=== PATIENT | female | born 1965 | race Caucasian/White ===

== ENCOUNTER → 2016-05-22 | Emergency (ER) | payer OTHER ==
--- NOTE | 2016-05-22 14:21 | ED ORDER SUMMARY ---
..... Patient: AUBREY MONTAGUE OrderSheet [facility] VisitID: [id number] [address] [place] [address] 50y, F Registration Date/Time: 05/22/2016 ORDER SHEET Weight: 136.0 kg (stated) Allergies: Penicillins GENERAL ORDERS: MEDICATION ORDERS: Decadron IM 8 mg (NOW) (14:18 05/22/2016 HBivens A.R.N.P.) (Ack 14:21 RMarsden R.N.) (14:38 RMarsden R.N.) Toradol IM 60 mg (NOW) (14:18 05/22/2016 HBivens A.R.N.P.) (Ack 14:21 RMarsden R.N.) (14:39 RMarsden R.N.) IV FLUIDS: ORDER SHEET NOTES: [Electronically signed by Maylin West R.N. (14:57 05/22/2016)] [Electronically signed by Susannah McdonaldR.N.P. (17:12 05/22/2016)] [Electronically locked/signed by Maylin West R.N. (14:57 05/22/2016)]
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
--- NOTE | 2016-05-22 14:21 | ED ORDER SUMMARY ---
..... Patient: AUBREY MONTAGUE OrderSheet [facility] VisitID: [id number] [address] [place] [address] 50y, F Registration Date/Time: 05/22/2016 ORDER SHEET Weight: 136.0 kg (stated) Allergies: Penicillins GENERAL ORDERS: MEDICATION ORDERS: Decadron IM 8 mg (NOW) (14:18 05/22/2016 HBivens A.R.N.P.) (Ack 14:21 RMarsden R.N.) (14:38 RMarsden R.N.) Toradol IM 60 mg (NOW) (14:18 05/22/2016 HBivens A.R.N.P.) (Ack 14:21 RMarsden R.N.) (14:39 RMarsden R.N.) IV FLUIDS: ORDER SHEET NOTES: [Electronically signed by Maylin West R.N. (14:57 05/22/2016)] [Electronically signed by Susannah McdonaldR.N.P. (17:12 05/22/2016)] [Electronically locked/signed by Maylin West R.N. (14:57 05/22/2016)]
--- NOTE | 2016-05-22 17:12 | ED MAR SUMMARY ---
..... Medication Administration Record [facility] [address] [place] [address] Patient: AUBREY MONTAGUE Visit ID: [id number] 50y, F Weight: 136.0 kg Height/Length: 62 in BMI: 54.9 ALLERGIES: Penicillins Given 14:37 05/22/2016 Maylin West, R.N. Medication Administered: DECADRON [IM] (DEXAMETHASONE SODIUM PHOSPHATE), Dose: 8 mg IM. Medication Ordered: Decadron IM 8 mg (NOW). Given 14:39 05/22/2016 Maylin West, R.N. Medication Administered: TORADOL [IM] (KETOROLAC TROMETHAMINE), Dose: 60 mg IM. Medication Ordered: Toradol IM 60 mg (NOW).
--- NOTE | 2016-05-22 17:12 | ED DISCHARGE INSTRUCTIONS ---
Patient: AUBREY MONTAGUE General Instructions [facility] VisitID: [id number] [address] [place] [address] 50y, F Registration Date/Time: 05/22/2016 Chronic nontraumatic lumbar back pain. Lumbar radiculopathy present. Sciatica present on the right. No neurological deficit. INSTRUCTIONS Warnings: GENERAL WARNINGS: Return or contact your physician immediately if your condition worsens or changes unexpectedly, if not improving as expected, or if other problems arise. SPECIFICALLY, return if you develop incontinence of feces (loss of bowel control) or urine (loss of bladder control). Prescription Medications: Naproxen 500 mg tablets: take 1 orally every 12 hours as needed for pain. Dispense twenty (20). No refills. Flexeril 10 mg: Take 1 orally every 8 hours as needed for muscle spasm. Dispense twenty (20). No refills. Substitution is permissible. Follow-up: Follow up with your doctor in about one week as needed. Call for an appointment. Summary of care provided to patient. Understanding of the discharge instructions verbalized by patient. ADDITIONAL INFORMATION Back Pain [Acute Or Chronic] Back pain is usually caused by an injury to the muscles or ligaments of the spine. Sometimes the disks that separate each bone in the spine may bulge and cause pain by pressing on a nearby nerve. Back pain may also appear after a sudden twisting/bending force (such as in a car accident), after a simple awkward movement, or lifting something heavy with poor body positioning. In either case, muscle spasm is often present and adds to the pain. Acute back pain usually gets better in one to two weeks. Back pain related to disk disease, arthritis in the spinal joints or spinal stenosis (narrowing of the spinal canal) can become chronic and last for months or years. Unless you had a physical injury (for example, a car accident or fall) X-rays are usually not ordered for the initial evaluation of back pain. If pain continues and does not respond to medical treatment, x-rays and other tests may be performed at a later time. Home Care: You may need to stay in bed the first few days. But, as soon as possible, begin sitting or walking to avoid problems with prolonged bed rest (muscle weakness, worsening back stiffness and pain, blood clots in the legs). When in bed, try to find a position of comfort. A firm mattress is best. Try lying flat on your back with pillows under your knees. You can also try lying on your side with your knees bent up towards your chest and a pillow between your knees. Avoid prolonged sitting. This puts more stress on the lower back than standing or walking. During the first two days after injury, apply an ICE PACK to the painful area for 20 minutes every 2-4 hours. This will reduce swelling and pain. HEAT (hot shower, hot bath or heating pad) works well for muscle spasm. You can start with ice, then switch to heat after two days. Some patients feel best alternating ice and heat treatments. Use the one method that feels the best to you. You may use acetaminophen (Tylenol) or ibuprofen (Motrin, Advil) to control pain, unless another pain medicine was prescribed. [NOTE: If you have chronic liver or kidney disease or ever had a stomach ulcer or GI bleeding, talk with your doctor before using these medicines.] Be aware of safe lifting methods and do not lift anything over 15 pounds until all the pain is gone. Follow Up with your doctor or this facility if your symptoms do not start to improve after one week. Physical therapy may be needed. [NOTE: If X-rays were taken, they will be reviewed by a radiologist. You will be notified of any new findings that may affect your care.] Get Prompt Medical Attention if any of the following occur: Pain becomes worse or spreads to your legs Weakness or numbness in one or both legs Loss of bowel or bladder control Numbness in the groin or genital area Sciatica Sciatica ("Lumbar Radiculopathy") causes a pain that spreads from the lower back down into the buttock, hip and leg. Sometimes leg pain can occur without any back pain. Sciatica is due to irritation or pressure on a spinal nerve as it comes out of the spinal canal. This is most often due to a bulge or rupture of a nearby spinal disk (the cartilage cushion between each spinal bone), which presses on a nearby nerve. Other causes include spinal stenosis (narrowing of the spinal canal) and spasm of the pyriform muscle (a muscle in the buttocks that the sciatic nerve passes through). Sciatica may begin after a sudden twisting/bending force (such as in a car accident), or sometimes after a simple awkward movement. In either case, muscle spasm is commonly present and contributes to the pain. The diagnosis of sciatica is made from the symptoms and physical exam. Unless you had a physical injury (such as a car accident or fall), X-rays are usually not ordered for the initial evaluation of sciatica because the nerves and disks cannot be seen on an x-ray. If signs of a compressed nerve are present (for example, loss of tendon reflex or strength in the leg), an MRI (magnetic resonance imaging) scan will need to be scheduled as an outpatient. Most sciatica (80-90%) gets better with medicine, exercise, physical therapy. If symptoms continue after at least three months of medical treatment, surgery may be considered. Home Care: You may need to stay in bed the first few days. But, as soon as possible, begin sitting or walking to avoid problems with prolonged bed rest. When in bed, try to find a position of comfort. A firm mattress is best. Try lying flat on your back with pillows under your knees. You can also try lying on your side with your knees bent up towards your chest and a pillow between your knees. Avoid prolonged sitting. This puts more stress on the lower back than standing or walking. Some persons find relief with heat (hot shower, hot bath or heating pad) and massage, while others prefer cold packs (crushed or cubed ice in a plastic bag, wrapped in a towel). Try both and use the method that feels best for 20 minutes several times a day. You may use acetaminophen (Tylenol) or ibuprofen (Motrin, Advil) to control pain, unless another pain medicine was prescribed. [ NOTE: If you have chronic liver or kidney disease or ever had a stomach ulcer or GI bleeding, talk with your doctor before using these medicines.] Be aware of safe lifting methods and do not lift anything over 15 pounds until all the pain is gone. Follow Up with your doctor or this facility if your symptoms do not start to improve after one week. Physical therapy or further testing may be needed. [NOTE: If X-rays were taken, they will be reviewed by a radiologist. You will be notified of any new findings that may affect your care.] Get Prompt Medical Attention if any of the following occur: Pain becomes worse, not controlled by the prescribed medicine Weakness or numbness in one or both legs Numbness in the groin, genital area Loss of bowel or bladder control Naproxen Sodium Oral tablet What is this medicine? NAPROXEN (na PROX en) is a non-steroidal anti-inflammatory drug (NSAID). It is used to reduce swelling and to treat pain. This medicine may be used for dental pain, headache, or painful monthly periods. It is also used for painful joint and muscular problems such as arthritis, tendinitis, bursitis, and gout. How should I use this medicine? Take this medicine by mouth with a glass of water. Follow the directions on the prescription label. Take it with food if your stomach gets upset. Try to not lie down for at least 10 minutes after you take it. Take your medicine at regular intervals. Do not take your medicine more often than directed. Long-term, continuous use may increase the risk of heart attack or stroke. A special MedGuide will be given to you by the pharmacist with each prescription and refill. Be sure to read this information carefully each time. Talk to your yarn weigher regarding the use of this medicine in children. Special care may be needed. What side effects may I notice from receiving this medicine? Side effects that you should report to your doctor or health critical care physician assistant as soon as possible: black or bloody stools, blood in the urine or vomit blurred vision chest pain difficulty breathing or wheezing nausea or vomiting severe stomach pain skin rash, skin redness, blistering or peeling skin, hives, or itching slurred speech or weakness on one side of the body swelling of eyelids, throat, lips unexplained weight gain or swelling unusually weak or tired yellowing of eyes or skin Side effects that usually do not require medical attention (report to your doctor or health critical care physician assistant if they continue or are bothersome): constipation headache heartburn What may interact with this medicine? alcohol aspirin cidofovir diuretics lithium methotrexate other drugs for inflammation like ketorolac or prednisone pemetrexed probenecid warfarin What if I miss a dose? If you miss a dose, take it as soon as you can. If it is almost time for your next dose, take only that dose. Do not take double or extra doses. Where should I keep my medicine? Keep out of the reach of children. Store at room temperature between 15 and 30 degrees C (59 and 86 degrees F). Keep container tightly closed. Throw away any unused medicine after the expiration date. What should I tell my health care provider before I take this medicine? They need to know if you have any of these conditions: asthma cigarette smoker drink more than 3 alcohol containing drinks a day heart disease or circulation problems such as heart failure or leg edema (fluid retention) high blood pressure kidney disease liver disease stomach bleeding or ulcers an unusual or allergic reaction to naproxen, aspirin, other NSAIDs, other medicines, foods, dyes, or preservatives or trying to get breast-feeding What should I watch for while using this medicine? Tell your doctor or health critical care physician assistant if your pain does not get better. Talk to your doctor before taking another medicine for pain. Do not treat yourself. This medicine does not prevent heart attack or stroke. In fact, this medicine may increase the chance of a heart attack or stroke. The chance may increase with longer use of this medicine and in people who have heart disease. If you take aspirin to prevent heart attack or stroke, talk with your doctor or health critical care physician assistant. Do not take other medicines that contain aspirin, ibuprofen, or naproxen with this medicine. Side effects such as stomach upset, nausea, or ulcers may be more likely to occur. Many medicines available without a prescription should not be taken with this medicine. This medicine can cause ulcers and bleeding in the stomach and intestines at any time during treatment. Do not smoke cigarettes or drink alcohol. These increase irritation to your stomach and can make it more susceptible to damage from this medicine. Ulcers and bleeding can happen without warning symptoms and can cause . You may get drowsy or dizzy. Do not drive, use machinery, or do anything that needs mental alertness until you know how this medicine affects you. Do not stand or sit up quickly, especially if you are an older patient. This reduces the risk of dizzy or fainting spells. This medicine can cause you to bleed more easily. Try to avoid damage to your teeth and gums when you brush or floss your teeth. Cyclobenzaprine Hydrochloride Oral tablet What is this medicine? CYCLOBENZAPRINE (sye gregorio vann) is a muscle relaxer. It is used to treat muscle pain, spasms, and stiffness. How should I use this medicine? Take this medicine by mouth with a glass of water. Follow the directions on the prescription label. If this medicine upsets your stomach, take it with food or milk. Take your medicine at regular intervals. Do not take it more often than directed. Talk to your yarn weigher regarding the use of this medicine in children. Special care may be needed. What side effects may I notice from receiving this medicine? Side effects that you should report to your doctor or health critical care physician assistant as soon as possible: allergic reactions like skin rash, itching or hives, swelling of the face, lips, or tongue chest pain fast heartbeat hallucinations seizures vomiting Side effects that usually do not require medical attention (report to your doctor or health critical care physician assistant if they continue or are bothersome): headache What may interact with this medicine? Do not take this medicine with any of the following medications: cisapride droperidol flecainide grepafloxacin halofantrine levomethadyl MAOIs like Carbex, Eldepryl, Marplan, Nardil, and Parnate nilotinib pimozide probucol sertindole This medicine may also interact with the following medications: abarelix alcohol contrast dyes dolasetron guanethidine medicines for cancer medicines for depression, anxiety, or psychotic disturbances medicines to treat an irregular heartbeat medicines used for sleep or numbness during surgery or procedure methadone octreotide ondansetron palonosetron phenothiazines like chlorpromazine, mesoridazine, prochlorperazine, thioridazine some medicines for infection like alfuzosin, chloroquine, clarithromycin, levofloxacin, mefloquine, pentamidine, troleandomycin tramadol vardenafil What if I miss a dose? If you miss a dose, take it as soon as you can. If it is almost time for your next dose, take only that dose. Do not take double or extra doses. Where should I keep my medicine? Keep out of the reach of children. Store at room temperature between 15 and 30 degrees C (59 and 86 degrees F). Keep container tightly closed. Throw away any unused medicine after the expiration date. What should I tell my health care provider before I take this medicine? They need to know if you have any of these conditions: heart disease, irregular heartbeat, or previous heart attack liver disease thyroid problem an unusual or allergic reaction to cyclobenzaprine, tricyclic antidepressants, lactose, other medicines, foods, dyes, or preservatives or trying to get breast-feeding What should I watch for while using this medicine? Check with your doctor or health critical care physician assistant if your condition does not improve within 1 to 3 weeks. You may get drowsy or dizzy when you first start taking the medicine or change doses. Do not drive, use machinery, or do anything that may be dangerous until you know how the medicine affects you. Stand or sit up slowly. Your mouth may get dry. Drinking water, chewing sugarless gum, or sucking on hard candy may help. You have been given the following additional information: Back Pain (Acute Or Chronic) Back Pain W/ Sciatica Naproxen Sodium Oral tablet Cyclobenzaprine Hydrochloride Oral tablet (Electronically signed by Susannah Mcdonald A.R.N.P. 05/22/2016 17:12)
--- NOTE | 2016-05-22 17:12 | ED MED RECONCILIATION SUMMARY ---
Patient: AUBREY MONTAGUE Medication Reconciliation Report [facility] VisitID: [id number] [address] [place] [address] 50y, F Registration Date/Time: 05/22/2016 Weight: 136.0 kg Height/Length: 62 in. BMI: 54.9 ALLERGIES: Penicillins The patient's Home Medications are listed below: THE FOLLOWING MEDICATIONS NEED TO BE RECONCILED: Aspirin EC Oral 81 mg, daily Atenolol Oral 100 mg, 2x a day BuPROPion HCl Oral DULoxetine HCl Oral 60, q day Fluvirin Intramuscular Gabapentin Oral 300 mg, daily HYDROmorphone HCl Oral 4 mg, 3x a day Levothyroxine Sodium Oral 50 mcg, daily Lidocaine-Prilocaine External, pain Lovastatin ER Oral 20 mg Omeprazole Oral 20 mg PARoxetine HCl Oral (40 mg) Polyethylene Glycol 3350 Oral Ranitidine HCl Oral 150 mg, at bedtime Topiramate Oral Tylenol Oral Ventolin HFA Inhalation 2 puffs, soa Vitamin D Oral Zofran ODT Oral (4 mg), nausea The source(s) of the original Home Medication information: Not obtained. The following Medications were given to the patient in the Emergency Department: Decadron [IM] IM 8 mg, administered: 05/22/2016 2:37:00 PM Toradol [IM] IM 60 mg, administered: 05/22/2016 2:39:00 PM The following Medications were prescribed to the patient: Naproxen 500 mg tablets: take 1 orally every 12 hours as needed for pain. Dispense twenty (20). No refills. -- Susannah Mcdonald A.R.NKalyanPKalyan Flexeril 10 mg: Take 1 orally every 8 hours as needed for muscle spasm. Dispense twenty (20). No refills. Substitution is permissible. -- Susannah Mcdonald A.R.NKalyanP.
--- NOTE | 2016-05-22 17:12 | ED MED RECONCILIATION SUMMARY ---
Patient: AUBREY MONTAGUE Medication Reconciliation Report [facility] VisitID: [id number] [address] [place] [address] 50y, F Registration Date/Time: 05/22/2016 Weight: 136.0 kg Height/Length: 62 in. BMI: 54.9 ALLERGIES: Penicillins The patient's Home Medications are listed below: THE FOLLOWING MEDICATIONS NEED TO BE RECONCILED: Aspirin EC Oral 81 mg, daily Atenolol Oral 100 mg, 2x a day BuPROPion HCl Oral DULoxetine HCl Oral 60, q day Fluvirin Intramuscular Gabapentin Oral 300 mg, daily HYDROmorphone HCl Oral 4 mg, 3x a day Levothyroxine Sodium Oral 50 mcg, daily Lidocaine-Prilocaine External, pain Lovastatin ER Oral 20 mg Omeprazole Oral 20 mg PARoxetine HCl Oral (40 mg) Polyethylene Glycol 3350 Oral Ranitidine HCl Oral 150 mg, at bedtime Topiramate Oral Tylenol Oral Ventolin HFA Inhalation 2 puffs, soa Vitamin D Oral Zofran ODT Oral (4 mg), nausea The source(s) of the original Home Medication information: Not obtained. The following Medications were given to the patient in the Emergency Department: Decadron [IM] IM 8 mg, administered: 05/22/2016 2:37:00 PM Toradol [IM] IM 60 mg, administered: 05/22/2016 2:39:00 PM The following Medications were prescribed to the patient: Naproxen 500 mg tablets: take 1 orally every 12 hours as needed for pain. Dispense twenty (20). No refills. -- Susannah Mcdonald A.R.NKalyanPKalyan Flexeril 10 mg: Take 1 orally every 8 hours as needed for muscle spasm. Dispense twenty (20). No refills. Substitution is permissible. -- Susannah Mcdonald A.R.NKalyanP.
--- NOTE | 2016-05-22 17:12 | ED MAR SUMMARY ---
..... Medication Administration Record [facility] [address] [place] [address] Patient: AUBREY MONTAGUE Visit ID: [id number] 50y, F Weight: 136.0 kg Height/Length: 62 in BMI: 54.9 ALLERGIES: Penicillins Given 14:37 05/22/2016 Maylin West, R.N. Medication Administered: DECADRON [IM] (DEXAMETHASONE SODIUM PHOSPHATE), Dose: 8 mg IM. Medication Ordered: Decadron IM 8 mg (NOW). Given 14:39 05/22/2016 Maylin West, R.N. Medication Administered: TORADOL [IM] (KETOROLAC TROMETHAMINE), Dose: 60 mg IM. Medication Ordered: Toradol IM 60 mg (NOW).
== END ==
LOC: ED SRH 13:42
DX: M54.41 Lumbago with sciatica, right side (principal); M54.16 Radiculopathy, lumbar region; I10 Essential (primary) hypertension; E07.9 Disorder of thyroid, unspecified; J98.4 Other disorders of lung; Z79.82 Long term (current) use of aspirin; Z79.899 Other long term (current) drug therapy; Z88.0 Allergy status to penicillin

== ENCOUNTER 2016-07-12 18:29 | Emergency (ER) | payer OTHER ==
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
--- NOTE | 2016-07-12 21:34 | ED MAR SUMMARY ---
..... Medication Administration Record [facility] [address], [place] [id number] Patient: AUBREY MONTAGUE Visit ID: [id number] 51y, F Weight: 136.0 kg Height/Length: 62 in BMI: 54.9 ALLERGIES: Penicillins
--- NOTE | 2016-07-12 21:34 | ED MAR SUMMARY ---
..... Medication Administration Record [facility] [address] [place], [place] [id number] Patient: AUBREY MONTAGUE Visit ID: [id number] 51y, F Weight: 136.0 kg Height/Length: 62 in BMI: 54.9 ALLERGIES: Penicillins
--- NOTE | 2016-07-12 21:34 | ED DISCHARGE INSTRUCTIONS ---
Patient: AUBREY MONTAGUE General Instructions [facility] VisitID: [id number] [place] [address] 51y, F Registration Date/Time: 07/12/2016 Upper respiratory infection (exposure to Pertussis). INSTRUCTIONS Drink plenty of fluids. Prescription Medications: Erythromycin 500 mg: take 1 orally every 6 hours for 10 days. No refill. Follow-up: Follow up with your doctor Friday as needed. Understanding of the discharge instructions verbalized by patient. ADDITIONAL INFORMATION Erythromycin Stearate Oral tablet What is this medicine? ERYTHROMYCIN (er ith blayne DAKOTAE sin) is a macrolide antibiotic. It is used to treat certain kinds of bacterial infections. It will not work for colds, flu, or other viral infections. How should I use this medicine? Take this medicine by mouth with glass of water. Follow the directions on the prescription label. Take this medicine on an empty stomach, at least 30 minutes before or 2 hours after food. If this medicine upsets your stomach, take with food or milk. Take your medicine at regular intervals. Do not take your medicine more often than directed. Do not skip doses or stop your medicine early even if you feel better. Do not stop taking except on your doctor's advice. Talk to your wood floor layer regarding the use of this medicine in children. Special care may be needed. What side effects may I notice from receiving this medicine? Side effects that you should report to your doctor or health care team coordinator scheduler as soon as possible: allergic reactions like skin rash, itching or hives, swelling of the face, lips, or tongue dark urine difficulty breathing hearing loss irregular heartbeat or chest pain redness, blistering, peeling or loosening of the skin, including inside the mouth severe or watery diarrhea unusually weak or tired yellowing of eyes or skin Side effects that usually do not require medical attention (report to your doctor or health care team coordinator scheduler if they continue or are bothersome): diarrhea loss of appetite nausea, vomiting stomach pain What may interact with this medicine? Do not take this medicine with any of the following medications: chloroquine cisapride droperidol eplerenone ergotamine and dihydroergotamine methadone other antibiotics, like grepafloxacin or sparfloxacin sirolimus some medicines for cholesterol like atorvastatin, cerivastatin, lovastatin, and simvastatin some medicines for heart rhythm problems some medicines for psychotic disturbances vinblastine red yeast rice This medicine may also interact with the following medications: alfentanil bromocriptine carbamazepine cyclosporine digoxin some medicines for anxiety or difficulty sleeping phenytoin terfenadine theophylline valproate warfarin What if I miss a dose? If you miss a dose, take it as soon as you can. If it is almost time for your next dose, take only that dose. Do not take double or extra doses. Where should I keep my medicine? Keep out of the reach of children. Store at room temperature between 15 and 30 degrees C (59 and 86 degrees F). Keep container tightly closed. Throw away any unused medicine after the expiration date. What should I tell my health care provider before I take this medicine? They need to know if you have any of these conditions: liver disease myasthenia gravis an unusual or allergic reaction to erythromycin, other medicines, foods, dyes, or preservatives or trying to get breast-feeding What should I watch for while using this medicine? Tell your doctor or health care team coordinator scheduler if your symptoms do not improve or if they get worse. Do not treat diarrhea with over the counter products. Contact your doctor if you have diarrhea that lasts more than 2 days or if it is severe and watery. You have been given the following additional information: Erythromycin Stearate Oral tablet (Electronically signed by Coty Cisneros P.A.-C 07/12/2016 18:58)
--- NOTE | 2016-07-12 21:34 | ED MED RECONCILIATION SUMMARY ---
Patient: AUBREY MONTAGUE Medication Reconciliation Report [facility] VisitID: [id number] [address] [place] [address] 51y, F Registration Date/Time: 07/12/2016 Weight: 136.0 kg Height/Length: 62 in. BMI: 54.9 ALLERGIES: Penicillins The patient's Home Medications are listed below: THE FOLLOWING MEDICATIONS NEED TO BE RECONCILED: Aspirin EC Oral 81 mg, daily Atenolol Oral 100 mg, 2x a day BuPROPion HCl Oral DULoxetine HCl Oral 60, q day Fluvirin Intramuscular Gabapentin Oral 300 mg, daily HYDROmorphone HCl Oral 4 mg, 3x a day Levothyroxine Sodium Oral 50 mcg, daily Lovastatin ER Oral 20 mg Omeprazole Oral 20 mg PARoxetine HCl Oral (40 mg) Polyethylene Glycol 3350 Oral Ranitidine HCl Oral 150 mg, at bedtime Topiramate Oral Tylenol Oral Ventolin HFA Inhalation 2 puffs, soa Vitamin D Oral Zofran ODT Oral (4 mg), nausea The source(s) of the original Home Medication information: patient The following Medications were given to the patient in the Emergency Department: None. The following Medications were prescribed to the patient: Erythromycin 500 mg: take 1 orally every 6 hours for 10 days. No refill. -- Coty Cisneros P.A.-C
--- NOTE | 2016-07-12 21:34 | ED DISCHARGE INSTRUCTIONS ---
Patient: AUBREY MONTAGUE General Instructions [facility] VisitID: [id number] [place] [address] 51y, F Registration Date/Time: 07/12/2016 Upper respiratory infection (exposure to Pertussis). INSTRUCTIONS Drink plenty of fluids. Prescription Medications: Erythromycin 500 mg: take 1 orally every 6 hours for 10 days. No refill. Follow-up: Follow up with your doctor Friday as needed. Understanding of the discharge instructions verbalized by patient. ADDITIONAL INFORMATION Erythromycin Stearate Oral tablet What is this medicine? ERYTHROMYCIN (er ith blayne DAKOTAE sin) is a macrolide antibiotic. It is used to treat certain kinds of bacterial infections. It will not work for colds, flu, or other viral infections. How should I use this medicine? Take this medicine by mouth with glass of water. Follow the directions on the prescription label. Take this medicine on an empty stomach, at least 30 minutes before or 2 hours after food. If this medicine upsets your stomach, take with food or milk. Take your medicine at regular intervals. Do not take your medicine more often than directed. Do not skip doses or stop your medicine early even if you feel better. Do not stop taking except on your doctor's advice. Talk to your building tech regarding the use of this medicine in children. Special care may be needed. What side effects may I notice from receiving this medicine? Side effects that you should report to your doctor or health home care coordinator as soon as possible: allergic reactions like skin rash, itching or hives, swelling of the face, lips, or tongue dark urine difficulty breathing hearing loss irregular heartbeat or chest pain redness, blistering, peeling or loosening of the skin, including inside the mouth severe or watery diarrhea unusually weak or tired yellowing of eyes or skin Side effects that usually do not require medical attention (report to your doctor or health home care coordinator if they continue or are bothersome): diarrhea loss of appetite nausea, vomiting stomach pain What may interact with this medicine? Do not take this medicine with any of the following medications: chloroquine cisapride droperidol eplerenone ergotamine and dihydroergotamine methadone other antibiotics, like grepafloxacin or sparfloxacin sirolimus some medicines for cholesterol like atorvastatin, cerivastatin, lovastatin, and simvastatin some medicines for heart rhythm problems some medicines for psychotic disturbances vinblastine red yeast rice This medicine may also interact with the following medications: alfentanil bromocriptine carbamazepine cyclosporine digoxin some medicines for anxiety or difficulty sleeping phenytoin terfenadine theophylline valproate warfarin What if I miss a dose? If you miss a dose, take it as soon as you can. If it is almost time for your next dose, take only that dose. Do not take double or extra doses. Where should I keep my medicine? Keep out of the reach of children. Store at room temperature between 15 and 30 degrees C (59 and 86 degrees F). Keep container tightly closed. Throw away any unused medicine after the expiration date. What should I tell my health care provider before I take this medicine? They need to know if you have any of these conditions: liver disease myasthenia gravis an unusual or allergic reaction to erythromycin, other medicines, foods, dyes, or preservatives or trying to get breast-feeding What should I watch for while using this medicine? Tell your doctor or health home care coordinator if your symptoms do not improve or if they get worse. Do not treat diarrhea with over the counter products. Contact your doctor if you have diarrhea that lasts more than 2 days or if it is severe and watery. You have been given the following additional information: Erythromycin Stearate Oral tablet (Electronically signed by Coty Cisneros P.A.-C 07/12/2016 18:58)
--- NOTE | 2016-07-12 21:34 | ED MED RECONCILIATION SUMMARY ---
Patient: AUBREY MONTAGUE Medication Reconciliation Report [facility] VisitID: [id number] [address] [place] [address] 51y, F Registration Date/Time: 07/12/2016 Weight: 136.0 kg Height/Length: 62 in. BMI: 54.9 ALLERGIES: Penicillins The patient's Home Medications are listed below: THE FOLLOWING MEDICATIONS NEED TO BE RECONCILED: Aspirin EC Oral 81 mg, daily Atenolol Oral 100 mg, 2x a day BuPROPion HCl Oral DULoxetine HCl Oral 60, q day Fluvirin Intramuscular Gabapentin Oral 300 mg, daily HYDROmorphone HCl Oral 4 mg, 3x a day Levothyroxine Sodium Oral 50 mcg, daily Lovastatin ER Oral 20 mg Omeprazole Oral 20 mg PARoxetine HCl Oral (40 mg) Polyethylene Glycol 3350 Oral Ranitidine HCl Oral 150 mg, at bedtime Topiramate Oral Tylenol Oral Ventolin HFA Inhalation 2 puffs, soa Vitamin D Oral Zofran ODT Oral (4 mg), nausea The source(s) of the original Home Medication information: patient The following Medications were given to the patient in the Emergency Department: None. The following Medications were prescribed to the patient: Erythromycin 500 mg: take 1 orally every 6 hours for 10 days. No refill. -- Coty Cisneros P.A.-C
== END 2016-07-12 18:55 | disposition home or self-care (01) ==
LOC: ED SRH 18:29
DX: J06.9 Acute upper respiratory infection, unspecified (principal); Z20.818 Contact with and (suspected) exposure to other bacterial communicable diseases; I10 Essential (primary) hypertension; E07.9 Disorder of thyroid, unspecified; Z79.82 Long term (current) use of aspirin; Z79.899 Other long term (current) drug therapy; Z79.891 Long term (current) use of opiate analgesic; Z79.1 Long term (current) use of non-steroidal anti-inflammatories (NSAID); Z88.0 Allergy status to penicillin

== ENCOUNTER 2016-09-21 23:16 | Emergency (ER) | payer OTHER ==
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
--- NOTE | 2016-09-22 04:41 | ED CLINICAL REPORT ---
Clinical Report - Physicians/Mid Levels [facility] [address] [place] [address] 09/21/2016 23:17 Patient: AUBREY MONTAGUE Time Seen: 23:36. Arrived- By private vehicle. Historian- patient. HISTORY OF PRESENT ILLNESS Chief Complaint: DYSPNEA and Back and abdominal pain. This started about 3 days ago and is still present. The dyspnea is described as mild (pain is moderate). (patient states it hurts to take a deep breath; nothing else makes the dyspnea better or worse). No cough, sputum production, fever, sweating episodes or wheezing. No chills, dyspnea on exertion, chest pain or discomfort or calf pain. No foot swelling, orthopnea, anxiety, dizziness or tingling. No numbness or palpitations. (Patient states that food makes her abdominal pain, on the back pain is just there no matter what. She states the back pain becomes worse with certain movements. Patient does have a history of GERD and gastritis, but has not had an endoscopy in a couple of years she states). Similar symptoms previously: Recent medical care: Not recently seen/assessed. REVIEW OF SYSTEMS The patient has had abdominal pain but not had weight loss. No muscle aches, eye irritation, sore throat, nasal discharge or sinus drainage. No nausea, vomiting, diarrhea, black stools or bloody stools. No headache, fainting episodes, blurred vision, difficulty with urination or skin rash. No enlarged lymph nodes or joint pain. All systems otherwise negative, except as recorded above. PAST HISTORY Problems: Sciatica. Tetanus Status. Gastroesophageal Reflux. Tension-Type Headache. Immunizations. LNMP - Last Normal Menstrual Period. Morbid obesity. Bulging disc L4-5. Fibromyalgia. Strong's esophagus. Sleep Apnea. Thyroid Disease. Anxiety Reaction. Atypical Chest Pain. Hypertension. Additional Surgeries: Cholecystectomy. . Hysterectomy. Laparoscopy. Oophorectomy. Salpingectomy. Sinus Surgery. Medications: PARoxetine HCl Oral (Tablet 40 mg). Polyethylene Glycol 3350 Oral. Ranitidine HCl Oral 150 mg, at bedtime. Topiramate Oral. Tylenol Oral. Ventolin HFA Inhalation 2 puffs, as needed (soa). Vitamin D Oral. Zofran ODT Oral (Tablet Dispersible 4 mg), as needed (nausea). Aspirin EC Oral 81 mg, daily. Atenolol Oral 100 mg, 2x a day. BuPROPion HCl Oral. DULoxetine HCl Oral 60, q day. Fluvirin Intramuscular. Gabapentin Oral 300 mg, daily. HYDROmorphone HCl Oral 4 mg, 3x a day. Levothyroxine Sodium Oral 50 mcg, daily. Lovastatin ER Oral 20 mg. Omeprazole Oral 20 mg, as needed. Allergies: Penicillins. SOCIAL HISTORY Never smoker. No alcohol use or drug use. ADDITIONAL NOTES The nursing notes have been reviewed. PHYSICAL EXAM Vital Signs: 09/21/2016 23:20 BP: 161/76. HR: 70. RR: 20. O2 saturation: 99%. Temp: 98.2 F. Pain level now: 10/10. Have been reviewed. Appearance: Alert. No acute distress. Eyes: Pupils equal, round and reactive to light. Eyes normal inspection. ENT: Nose normal. Neck: Normal inspection. CVS: Normal heart rate and rhythm. Heart sounds normal. Pulses normal. Respiratory: No respiratory distress. Breath sounds normal. Abdomen: Soft. Mild tenderness in the left upper quadrant. No guarding or rebound tenderness. Back: (Patient has mild tenderness over her left back.). Skin: Skin warm and dry. Normal skin color. No rash. Normal skin turgor. Extremities: Extremities exhibit normal ROM. No lower extremity edema. Neuro: Oriented X 3. No motor deficit. No sensory deficit. LABS, X-RAYS, AND EKG EKG: EKG time: (2779). No acute process. No acute ischemia. Normal sinus rhythm. Rate: 70. Normal P waves. First-degree atrioventricular block. Normal QRS complex. Normal axis. Normal ST and T waves, QT and QTc. Prior EKG unavailable. The study has been interpreted contemporaneously by me. The study has been independently viewed by me. The EKG appears to be a good tracing. I agree with and confirm the computer reading of the EKG. Rhythm Strip #1: Time: (1175). Rate= 72. Normal sinus rhythm. Regular rhythm. Narrow QRS complexes. No ectopy. Conduction normal. Normal ST segments and T waves. The study was interpreted by me. Chest X-ray: No acute disease. Normal lung markings present. Normal heart size. Mediastinum normal. Great vessels normal. Soft tissues normal. No infiltrate. No fracture. No bony lesion present. Views: AP (portable). Technique: good. The X-rays were independently viewed by me, interpreted by the radiologist and contemporaneously by me and discussed with the radiologist. Prior films were not available for comparison. Abdominal CT: Normal aorta. Fatty liver present. Pancreas abnormal. Normal spleen, adrenals and kidneys. No mass. No free fluid. No bony lesion. No diverticulitis. GB surgically absent. Thickening of bladder wall with mild stranding. Study type: abdomen and pelvis. Abdominal CT performed with IV contrast. The study was independently viewed by me, interpreted by the radiologist and contemporaneously by me and discussed with the radiologist. Prior studies were not available for comparison. Laboratory Tests: UA-Culture if indicated: (WHIT: 09/21/2016 23:40) ( [facility] 09/21/2016 23:59) Final results Test Result Flag Units (Reference) URINE COLOR YELLOW URINE APPEARANCE CLEAR URINE GLUCOSE NEGATIVE (NEGATIVE) URINE BILIRUBIN NEGATIVE (NEGATIVE) URINE KETONE NEGATIVE (NEGATIVE) URINE SPECIFIC GRAVITY 1.015 (1.010-1.030) URINE PH 7.0 (5.0-8.0) URINE PROTEIN NEGATIVE (NEGATIVE) URINE UROBILINOGEN 0.2 EU/dL (0.2-1.0) URINE NITRITE NEGATIVE (NEGATIVE) URINE BLOOD NEGATIVE (NEGATIVE) URINE LEUK ESTERASE NEGATIVE (NEGATIVE) URINE RBC RARE rbc/hpf (0-1) URINE WBC RARE wbc/hpf (0-1) URINE EPITHELIAL CELLS NONE SEEN EPI/hpf (0-5) URINE BACTERIA NONE SEEN (NONE SEEN) URINE COMMENT CULT NOT INDICATED URINE CULTURES ARE SET-UP BASED ON THE FOLLOWING CRITERIA:POSITIVE NITRITEPOSITIVE LEUKOCYTE ESTERASEGREATER THAN 10 WHITE BLOOD CELLSMODERATE (2+) OR GREATER BACTERIA CBC w Diff: (WHIT: 09/21/2016 23:40) ( [facility] 09/21/2016 23:53) Final results Test Result Flag Units (Reference) WHITE BLOOD COUNT 8.5 K/uL (4.5-11.5) RED BLOOD COUNT 3.86 L M/uL (4.00-5.20) HEMOGLOBIN 12.2 gm/dL (12.0-16.0) HEMATOCRIT 35.6 L % (36.0-46.0) MEAN CELL VOLUME 92 fL (80-100) MEAN CORPUSCULAR HGB 32 pg (26-34) MEAN CORPUSCULAR HGB CONC 34 g/dL (31-37) RED CELL DISTRIBUTION WIDTH 13.1 % (11.6-14.8) PLATELET COUNT 255 K/uL (150-400) NEUTROPHIL % 51.1 % (50-75) LYMPH % 41.1 H % (25-40) MONO % 6.1 % (3-14) EOSINOPHIL % 1.2 % (0-4) BASOPHIL % 0.5 % (0-2) Lipase: (WHIT: 09/21/2016 23:40) ( [facility] 09/22/2016 00:00) Final results Test Result Flag Units (Reference) LIPASE 85 U/L (73-393) AMYLASE 43 U/L (25-115) CHEM 13 PANEL: (WHIT: 09/21/2016 23:40) ( [facility] 09/22/2016 00:23) Final results Test Result Flag Units (Reference) GLUCOSE 165 H mg/dL (70-110) BUN 13 mg/dL (7-18) CREATININE 0.9 mg/dL (0.6-1.3) Estimated GFR >60 mL/min Estimated GFR- >60 mL/min Note: Persistent reduction over 3 months in eGFR<60 mL/min/1.73 m2 defines CKD. Patients with eGFR values>=60 mL/min/1.73 m2 may also have CKD if evidence ofpersistent proteinuria. Additional information may be foundat www.kidney.org. SODIUM 139 mmol/L (136-145) POTASSIUM 3.3 L mmol/L (3.5-5.1) CHLORIDE 107 mmol/L (98-107) CARBON DIOXIDE 25 mmol/L (21-32) CALCIUM 9.1 mg/dL (8.5-10.1) TOTAL PROTEIN 7.5 g/dL (6.4-8.2) ALBUMIN 3.5 g/dL (3.3-5.0) BILIRUBIN, TOTAL 0.3 mg/dL (0.0-1.0) ALKALINE PHOSPHATASE 157 H U/L (46-116) AST (SGOT) 22 U/L (15-37) ALT (SGPT) 64 U/L (12-78) MAGNESIUM 2.1 mg/dL (1.8-2.4) CPK 291 H U/L (24-260) CK-MB 3.0 ng/mL (0.5-3.2) %CKMB 1.0 % (0.0-4.0) TROPONIN I <0.05 L ng/mL (0.00-1.5) TROPONIN REFERENCE RANGE:<0.1 NEGATIVE0.1-1.5 INDETERMINANT>1.5 POSITIVE . Pulse Oximetry: 09/21/2016 23:20 O2 saturation: 99%. (FIO2 - room air). Interpretation: normal. PROGRESS AND PROCEDURES Course of Care: patient was worked up for her back and abdominal pain, as well as her dyspnea,with labs, UA, EKG chest x-ray, and CT scan of the abdomen and pelvis. Workup was unremarkable. Patient was treated symptomatically with Dilaudid, with improvement in sx. I discussed with her that it is likely time for her to contact her primary care physician about scheduling another endoscopy. I believe her back pain is musculoskeletal in origin. No emergent condition identified. Patient counseled in person regarding the patient's stable condition, test results, diagnosis and need for follow-up. Concerns were addressed. Old medical records reviewed. Disposition: Discharged. Condition: stable and improved. CLINICAL IMPRESSION Acute left upper quadrant abdominal pain. Acute nontraumatic thoracic back pain. No radiculopathy or neurological deficit. INSTRUCTIONS (Your labs and CT scan look good, as does your urinalysis. You will need to follow up with your primary doctor to discuss having another endoscopy done.). Warnings: SEDATIVE MEDICATION: You were given sedative medication during your visit. Do not drive or operate dangerous machinery for 8 hours. GENERAL WARNINGS: Return or contact your physician immediately if your condition worsens or changes unexpectedly, if not improving as expected, or if other problems arise. Your Current Medications: CONTINUE TAKING THE FOLLOWING MEDICATIONS: Aspirin EC Oral : 81 mg daily. Atenolol Oral : 100 mg 2x a day. BuPROPion HCl Oral. DULoxetine HCl Oral : 60 q day. Fluvirin Intramuscular. Gabapentin Oral : 300 mg daily. HYDROmorphone HCl Oral : 4 mg 3x a day. Levothyroxine Sodium Oral : 50 mcg daily. Lovastatin ER Oral : 20 mg. Omeprazole Oral : 20 mg, prn. PARoxetine HCl Oral : Tablet 40 mg. Polyethylene Glycol 3350 Oral. Ranitidine HCl Oral : 150 mg at bedtime. Topiramate Oral. Tylenol Oral. Ventolin HFA Inhalation : 2 puffs, prn, soa. Vitamin D Oral. Zofran ODT Oral : Tablet Dispersible 4 mg, prn, nausea. Prescription Medications: Hydrocodone/APAP 5mg / 325mg: take 1-2 orally every 6 hours as needed for pain. Dispense fifteen (15). No refill. Follow-up: Follow up with your doctor. Call for the next available appointment. Understanding of the discharge instructions verbalized by patient. (Electronically signed by Juju Spence MD 09/22/2016 8:48)
--- NOTE | 2016-09-22 04:42 | ED ORDER SUMMARY ---
..... Patient: AUBREY MONTAGUE OrderSheet [facility] VisitID: [id number] [place] [address] 51y, F Registration Date/Time: 09/21/2016 ORDER SHEET Weight: 136.0 kg (stated) Allergies: Penicillins GENERAL ORDERS: Die Turner (Continuous) (23:09/21/2016 HSoule per protocol) (23:30 HSoule) UA-Culture if indicated Urgent (:09/21/2016 HSoule per protocol) (Ack 23:32 AMcQuoid ER Tech1) (0:44 HSoule) Cardiac Panel Stat (:09/21/2016 HSoule per protocol) (Ack 23:32 AMcQuoid ER Tech1) (0:44 HSoule) Amylase Urgent (:09/21/2016 HSoule per protocol) (Ack 23:32 AMcQuoid ER Tech1) (0:44 HSoule) Lipase Urgent (23:09/21/2016 HSoule per protocol) (Ack 23:32 AMcQuoid ER Tech1) (0:44 HSoule) CBC w Diff Urgent (:30 09/21/2016 HSoule per protocol) (Cancelled: Duplicate Order23:32 AMcQuoid ER Tech1) CMP Urgent (23:30 09/21/2016 HSoule per protocol) (Cancelled: Duplicate Order23:31 AMcQuoid ER Tech1) Oxygen (2 L/min) (NC) (:30 09/21/2016 HSoule per protocol) (23:30 HSoule) Pulse oximeter (:09/21/2016 HSoule per protocol) (23:30 HSoule) EKG - ER Stat (:09/21/2016 HSoule per protocol) (23:30 HSoule) Chest 1V Urgent (02:38 09/22/2016 Nikko ALFONSO) (2:45 RFay) CT Abd/Pel w Cont (No) (N/A) Urgent (03:10 09/22/2016 Nikko ALFONSO) (3:35 RFay) MEDICATION ORDERS: IV FLUIDS: IV Saline Lock (23:09/21/2016 HSoule per protocol) (23:30 HSoule) Dilaudid IV 1 mg (HIGH ALERT MEDICATION, NOW) (02:38 09/22/2016 Nikko ALFONSO) (Ack 2:46 HSoule) (2:57 HSoule) Toradol IV 30 mg (NOW) (02:38 09/22/2016 Nikko ALFONSO) (Ack 2:46 HSoule) (2:57 HSoule) Zofran IV 4 mg (NOW) (02:57 09/22/2016 HSoule verbal order read back to Nikko ALFONSO) (2:57 HSoule) Dilaudid IV 2 mg (HIGH ALERT MEDICATION, NOW) (03:35 09/22/2016 Nikko ALFONSO) (Ack 3:42 HSoule) (3:49 HSoule) ORDER SHEET NOTES: [Electronically signed by India Parisi (06:00 09/22/2016)] [Electronically signed by Juju Spence MD (08:48 09/22/2016)] [Electronically locked/signed by India Parisi (06:00 09/22/2016)]
--- NOTE | 2016-09-22 04:42 | ED ORDER SUMMARY ---
..... Patient: AUBREY MONTAGUE OrderSheet [facility] VisitID: [id number] [place] [address] 51y, F Registration Date/Time: 09/21/2016 ORDER SHEET Weight: 136.0 kg (stated) Allergies: Penicillins GENERAL ORDERS: Government Affairs Fellow (Continuous) (23:09/21/2016 HSoule per protocol) (23:30 HSoule) UA-Culture if indicated Urgent (:09/21/2016 HSoule per protocol) (Ack 23:32 AMcQuoid ER Tech1) (0:44 HSoule) Cardiac Panel Stat (:09/21/2016 HSoule per protocol) (Ack 23:32 AMcQuoid ER Tech1) (0:44 HSoule) Amylase Urgent (:09/21/2016 HSoule per protocol) (Ack 23:32 AMcQuoid ER Tech1) (0:44 HSoule) Lipase Urgent (23:09/21/2016 HSoule per protocol) (Ack 23:32 AMcQuoid ER Tech1) (0:44 HSoule) CBC w Diff Urgent (:30 09/21/2016 HSoule per protocol) (Cancelled: Duplicate Order23:32 AMcQuoid ER Tech1) CMP Urgent (23:30 09/21/2016 HSoule per protocol) (Cancelled: Duplicate Order23:31 AMcQuoid ER Tech1) Oxygen (2 L/min) (NC) (:30 09/21/2016 HSoule per protocol) (23:30 HSoule) Pulse oximeter (:09/21/2016 HSoule per protocol) (23:30 HSoule) EKG - ER Stat (:09/21/2016 HSoule per protocol) (23:30 HSoule) Chest 1V Urgent (02:38 09/22/2016 Nikko ALFONSO) (2:45 RFay) CT Abd/Pel w Cont (No) (N/A) Urgent (03:10 09/22/2016 Nikko ALFONSO) (3:35 RFay) MEDICATION ORDERS: IV FLUIDS: IV Saline Lock (23:09/21/2016 HSoule per protocol) (23:30 HSoule) Dilaudid IV 1 mg (HIGH ALERT MEDICATION, NOW) (02:38 09/22/2016 Nikko ALFONSO) (Ack 2:46 HSoule) (2:57 HSoule) Toradol IV 30 mg (NOW) (02:38 09/22/2016 Nikko ALFONSO) (Ack 2:46 HSoule) (2:57 HSoule) Zofran IV 4 mg (NOW) (02:57 09/22/2016 HSoule verbal order read back to Nikko ALFONSO) (2:57 HSoule) Dilaudid IV 2 mg (HIGH ALERT MEDICATION, NOW) (03:35 09/22/2016 Nikko ALFONSO) (Ack 3:42 HSoule) (3:49 HSoule) ORDER SHEET NOTES: [Electronically signed by India Parisi (06:00 09/22/2016)] [Electronically signed by Juju Spence MD (08:48 09/22/2016)] [Electronically locked/signed by India Parisi (06:00 09/22/2016)]
--- NOTE | 2016-09-22 07:30 | DIAGNOSTIC IMAGING REPORT ---
PROCEDURE: XR CHEST 1 VIEW INDICATION: SHORTNESS OF BREATH TECHNIQUE: Portable AP view 02:46 a.m. COMPARISON: Chest x-ray 09/03/2013 FINDINGS: Lungs are clear. Heart and mediastinum are normal. Thorax is normal. IMPRESSION: 1. Negative chest.
--- NOTE | 2016-09-22 07:41 | DIAGNOSTIC IMAGING REPORT ---
PROCEDURE: CT ABD/PELVIS WITH CONTRAST CLINICAL INDICATION: ABDOMINAL PAIN TECHNIQUE: 145 ml of Isovue 300 were injected intravenously and axial images were obtained of the entire abdomen and pelvis with sagittal and coronal reformations. COMPARISON: None. FINDINGS: ABDOMEN: Lung base are clear. Heart size is normal. Cholecystectomy. Liver, pancreas, spleen, adrenal glands and kidneys are normal. Tortuous aorta. PELVIS: Appendix not visualized but no evidence of acute appendicitis. Hysterectomy. Normal adnexa and bladder. Mild sigmoid diverticulosis. Bladder wall thickening with S5 secondary to decompression although cystitis is a consideration. No pelvic mass, inflammatory changes or free fluid. L5-S1 degenerative changes. IMPRESSION: 1. Cholecystectomy and hysterectomy 2. Mild sigmoid diverticulosis 3. Bladder wall thickening which may be secondary to decompression versus cystitis. Correlate clinically. 4. Preliminary results submitted by Dr. Fernandes, [facility] radiology. All CT scans at this facility use dose modulation, iterative reconstruction, and/or weight-based dosing when appropriate to reduce radiation dose to as low as reasonably achievable.
--- NOTE | 2016-09-22 08:48 | ED MAR SUMMARY ---
..... Medication Administration Record [facility] [address] [place] [place] [address] Patient: AUBREY MONTAGUE Visit ID: [id number] 51y, F Weight: 136.0 kg Height/Length: 62 in BMI: 54.9 ALLERGIES: Penicillins Given 09/22/2016 India Parisi, Medication Administered: DILAUDID [IVP] (HYDROMORPHONE HCL PF), Dose: 1 mg IVP over 1 minute(s), Site: #1 right AC. Medication Ordered: Dilaudid IV 1 mg (HIGH ALERT MEDICATION, NOW). Given 09/22/2016 India Parisi, Medication Administered: TORADOL [IVP], Dose: 30 mg IVP over 1 minute(s), Site: #1 right AC. Medication Ordered: Toradol IV 30 mg (NOW). Given 09/22/2016 India Parisi, Medication Administered: ZOFRAN [IVP] (ONDANSETRON HCL), Dose: 4 mg IVP over 1 minute(s), Site: #1 right AC. Medication Ordered: Zofran IV 4 mg (NOW). Given 03:49 09/22/2016 India Parisi, Medication Administered: DILAUDID [IVP] (HYDROMORPHONE HCL PF), Dose: 2 mg IVP over 2 minute(s), Site: #1 right AC. Medication Ordered: Dilaudid IV 2 mg (HIGH ALERT MEDICATION, NOW).
--- NOTE | 2016-09-22 08:48 | ED DISCHARGE INSTRUCTIONS ---
Patient: AUBREY MONTAGUE General Instructions [facility] VisitID: [id number] [place] [address] 51y, F Registration Date/Time: 09/21/2016 Acute left upper quadrant abdominal pain. Acute nontraumatic thoracic back pain. No radiculopathy or neurological deficit. INSTRUCTIONS (Your labs and CT scan look good, as does your urinalysis. You will need to follow up with your primary doctor to discuss having another endoscopy done.). Warnings: SEDATIVE MEDICATION: You were given sedative medication during your visit. Do not drive or operate dangerous machinery for 8 hours. GENERAL WARNINGS: Return or contact your physician immediately if your condition worsens or changes unexpectedly, if not improving as expected, or if other problems arise. Your Current Medications: CONTINUE TAKING THE FOLLOWING MEDICATIONS: Aspirin EC Oral : 81 mg daily. Atenolol Oral : 100 mg 2x a day. BuPROPion HCl Oral. DULoxetine HCl Oral : 60 q day. Fluvirin Intramuscular. Gabapentin Oral : 300 mg daily. HYDROmorphone HCl Oral : 4 mg 3x a day. Levothyroxine Sodium Oral : 50 mcg daily. Lovastatin ER Oral : 20 mg. Omeprazole Oral : 20 mg, prn. PARoxetine HCl Oral : Tablet 40 mg. Polyethylene Glycol 3350 Oral. Ranitidine HCl Oral : 150 mg at bedtime. Topiramate Oral. Tylenol Oral. Ventolin HFA Inhalation : 2 puffs, prn, soa. Vitamin D Oral. Zofran ODT Oral : Tablet Dispersible 4 mg, prn, nausea. Prescription Medications: Hydrocodone/APAP 5mg / 325mg: take 1-2 orally every 6 hours as needed for pain. Dispense fifteen (15). No refill. Follow-up: Follow up with your doctor. Call for the next available appointment. Understanding of the discharge instructions verbalized by patient. ADDITIONAL INFORMATION Abdominal Pain, Unknown Cause (Female) The exact cause of your abdominal (stomach) pain is not certain. This does not mean that this is something to worry about, or the right tests were not done. Everyone likes to know the exact cause of the problem, but sometimes with abdominal pain, there is no clear-cut cause, and this could be a good thing. The good news is that your symptoms can be treated, and you will feel better. Your condition does not seem serious now; however, sometimes the signs of a serious problem may take more time to appear. For this reason,it is important for you to watch for any new symptoms, problems,or worsening of your condition. Over the next few days, the abdominal pain may come and go, or be continuous. Other common symptoms can include nausea and vomiting. Sometimes it can be difficult to tell if you feel nauseous, you may just feel bad and not associate that feeling with nausea. Constipation, diarrhea, and a fever may go along with the pain. The pain may continue even if treated correctly over the following days. Depending on how things go, sometimes the cause can become clear and may require further or different treatment. Additional evaluations, medications, or tests may be needed. Home care Your health care provider may prescribe medications for pain, symptoms, or an infection. Follow the health care provider's instructions for taking these medications. General care Rest until your next exam. No strenuous activities. Try to find positions that ease discomfort. A small pillow placed on the abdomen may help relieve pain. Something warm on your abdomen (such as a heating pad) may help, but be careful not to burn yourself. Diet Do not force yourself to eat, especially if having cramps, vomiting, or diarrhea. Water is important so you do not get dehydrated. Soup may also be good. Sports drinks may also help, especially if they are not too acidic. Make sure you don't drink sugary drinks as this can make things worse. Take liquids in small amounts. Do not guzzle them. Caffeine sometimes makes the pain and cramping worse. Avoid dairy products if you have vomiting or diarrhea. Don't eat large amounts at a time. Wait a few minutes between bites. Eat a diet low in fiber (called a low-residue diet). Foods allowed include refined breads, white rice, fruit and vegetable juices without pulp, tender meats. These foods will pass more easily through the intestine. Avoid whole-grain foods, whole fruits and vegetables, meats, seeds and nuts, fried or fatty foods, dairy, alcohol and spicy foods until your symptoms go away. Follow-up care Follow up with your health care provider as instructed, or if your pain does not begin to improve in the next 24 hours. When to seek medical care Seek prompt medical care if any of the following occur: Pain gets worse or moves to the right lower abdomen New or worsening vomiting or diarrhea Swelling of the abdomen Unable to pass stool for more than three days Fever of 100.4F (38C) or higher, or as directed by your healthcare provider. Blood in vomit or bowel movements (dark red or black color) Jaundice (yellow color of eyes and skin) Weakness, dizziness Chest, arm, back, neck or jaw pain Unexpected vaginal bleeding or missed period Call 911 Call emergency services if any of the following occur: Trouble breathing Confusion Fainting or loss of consciousness Rapid heart rate Seizure Back Pain [Acute Or Chronic] Back pain is usually caused by an injury to the muscles or ligaments of the spine. Sometimes the disks that separate each bone in the spine may bulge and cause pain by pressing on a nearby nerve. Back pain may also appear after a sudden twisting/bending force (such as in a car accident), after a simple awkward movement, or lifting something heavy with poor body positioning. In either case, muscle spasm is often present and adds to the pain. Acute back pain usually gets better in one to two weeks. Back pain related to disk disease, arthritis in the spinal joints or spinal stenosis (narrowing of the spinal canal) can become chronic and last for months or years. Unless you had a physical injury (for example, a car accident or fall) X-rays are usually not ordered for the initial evaluation of back pain. If pain continues and does not respond to medical treatment, x-rays and other tests may be performed at a later time. Home Care: You may need to stay in bed the first few days. But, as soon as possible, begin sitting or walking to avoid problems with prolonged bed rest (muscle weakness, worsening back stiffness and pain, blood clots in the legs). When in bed, try to find a position of comfort. A firm mattress is best. Try lying flat on your back with pillows under your knees. You can also try lying on your side with your knees bent up towards your chest and a pillow between your knees. Avoid prolonged sitting. This puts more stress on the lower back than standing or walking. During the first two days after injury, apply an ICE PACK to the painful area for 20 minutes every 2-4 hours. This will reduce swelling and pain. HEAT (hot shower, hot bath or heating pad) works well for muscle spasm. You can start with ice, then switch to heat after two days. Some patients feel best alternating ice and heat treatments. Use the one method that feels the best to you. You may use acetaminophen (Tylenol) or ibuprofen (Motrin, Advil) to control pain, unless another pain medicine was prescribed. [NOTE: If you have chronic liver or kidney disease or ever had a stomach ulcer or GI bleeding, talk with your doctor before using these medicines.] Be aware of safe lifting methods and do not lift anything over 15 pounds until all the pain is gone. Follow Up with your doctor or this facility if your symptoms do not start to improve after one week. Physical therapy may be needed. [NOTE: If X-rays were taken, they will be reviewed by a radiologist. You will be notified of any new findings that may affect your care.] Get Prompt Medical Attention if any of the following occur: Pain becomes worse or spreads to your legs Weakness or numbness in one or both legs Loss of bowel or bladder control Numbness in the groin or genital area You have been given the following additional information: Abdominal Pain, Unknown Cause, (Female) Back Pain (Acute Or Chronic) (Electronically signed by Juju Spence MD 09/22/2016 8:48)
--- NOTE | 2016-09-22 08:48 | ED MAR SUMMARY ---
..... Medication Administration Record [facility] [address] [place] [place] [address] Patient: AUBREY MONTAGUE Visit ID: [id number] 51y, F Weight: 136.0 kg Height/Length: 62 in BMI: 54.9 ALLERGIES: Penicillins Given 09/22/2016 India Parisi, Medication Administered: DILAUDID [IVP] (HYDROMORPHONE HCL PF), Dose: 1 mg IVP over 1 minute(s), Site: #1 right AC. Medication Ordered: Dilaudid IV 1 mg (HIGH ALERT MEDICATION, NOW). Given 09/22/2016 India Parisi, Medication Administered: TORADOL [IVP], Dose: 30 mg IVP over 1 minute(s), Site: #1 right AC. Medication Ordered: Toradol IV 30 mg (NOW). Given 09/22/2016 India Parisi, Medication Administered: ZOFRAN [IVP] (ONDANSETRON HCL), Dose: 4 mg IVP over 1 minute(s), Site: #1 right AC. Medication Ordered: Zofran IV 4 mg (NOW). Given 03:49 09/22/2016 India Parisi, Medication Administered: DILAUDID [IVP] (HYDROMORPHONE HCL PF), Dose: 2 mg IVP over 2 minute(s), Site: #1 right AC. Medication Ordered: Dilaudid IV 2 mg (HIGH ALERT MEDICATION, NOW).
--- NOTE | 2016-09-22 08:48 | ED MED RECONCILIATION SUMMARY ---
Patient: AUBREY MONTAGUE Medication Reconciliation Report [facility] VisitID: [id number] [address] [place] [address] 51y, F Registration Date/Time: 09/21/2016 Weight: 136.0 kg Height/Length: 62 in. BMI: 54.9 ALLERGIES: Penicillins The patient's Home Medications are listed below: CONTINUE TAKING THE FOLLOWING MEDICATIONS: Aspirin EC Oral 81 mg, daily Atenolol Oral 100 mg, 2x a day BuPROPion HCl Oral DULoxetine HCl Oral 60, q day Fluvirin Intramuscular Gabapentin Oral 300 mg, daily HYDROmorphone HCl Oral 4 mg, 3x a day Levothyroxine Sodium Oral 50 mcg, daily Lovastatin ER Oral 20 mg Omeprazole Oral 20 mg PARoxetine HCl Oral (40 mg) Polyethylene Glycol 3350 Oral Ranitidine HCl Oral 150 mg, at bedtime Topiramate Oral Tylenol Oral Ventolin HFA Inhalation 2 puffs, soa Vitamin D Oral Zofran ODT Oral (4 mg), nausea The source(s) of the original Home Medication information: patient The following Medications were given to the patient in the Emergency Department: Dilaudid [IVP] IVP 1 mg, administered: 09/22/2016 2:57:00 AM Toradol [IVP] IVP 30 mg, administered: 09/22/2016 2:57:00 AM Zofran [IVP] IVP 4 mg, administered: 09/22/2016 2:57:00 AM Dilaudid [IVP] IVP 2 mg, administered: 09/22/2016 3:49:00 AM The following Medications were prescribed to the patient: Hydrocodone/APAP 5mg / 325mg: take 1-2 orally every 6 hours as needed for pain. Dispense fifteen (15). No refill. -- Juju Spence MD
--- NOTE | 2016-09-22 08:48 | ED MED RECONCILIATION SUMMARY ---
Patient: AUBREY MONTAGUE Medication Reconciliation Report [facility] VisitID: [id number] [address] [place] [address] 51y, F Registration Date/Time: 09/21/2016 Weight: 136.0 kg Height/Length: 62 in. BMI: 54.9 ALLERGIES: Penicillins The patient's Home Medications are listed below: CONTINUE TAKING THE FOLLOWING MEDICATIONS: Aspirin EC Oral 81 mg, daily Atenolol Oral 100 mg, 2x a day BuPROPion HCl Oral DULoxetine HCl Oral 60, q day Fluvirin Intramuscular Gabapentin Oral 300 mg, daily HYDROmorphone HCl Oral 4 mg, 3x a day Levothyroxine Sodium Oral 50 mcg, daily Lovastatin ER Oral 20 mg Omeprazole Oral 20 mg PARoxetine HCl Oral (40 mg) Polyethylene Glycol 3350 Oral Ranitidine HCl Oral 150 mg, at bedtime Topiramate Oral Tylenol Oral Ventolin HFA Inhalation 2 puffs, soa Vitamin D Oral Zofran ODT Oral (4 mg), nausea The source(s) of the original Home Medication information: patient The following Medications were given to the patient in the Emergency Department: Dilaudid [IVP] IVP 1 mg, administered: 09/22/2016 2:57:00 AM Toradol [IVP] IVP 30 mg, administered: 09/22/2016 2:57:00 AM Zofran [IVP] IVP 4 mg, administered: 09/22/2016 2:57:00 AM Dilaudid [IVP] IVP 2 mg, administered: 09/22/2016 3:49:00 AM The following Medications were prescribed to the patient: Hydrocodone/APAP 5mg / 325mg: take 1-2 orally every 6 hours as needed for pain. Dispense fifteen (15). No refill. -- Juju Spence MD
== END 2016-09-22 05:00 | disposition home or self-care (01) ==
LOC: ED SRH 23:16
DX: R10.12 Left upper quadrant pain (principal); M54.6 Pain in thoracic spine; I10 Essential (primary) hypertension; K21.9 Gastro-esophageal reflux disease without esophagitis; Z79.899 Other long term (current) drug therapy; Z79.82 Long term (current) use of aspirin; Z88.0 Allergy status to penicillin
CPT/HCPCS: 90004; 90100; 90616; 90617; 92235; 92530; 92610; 92720; 95059